=== PATIENT | female | born 2005 | race Two or more races ===

== ENCOUNTER 2025-11-18 21:27 | Emergency (ER) | payer MEDICAID ==
[~2025-11-18] VITALS: Ht 144.8 cm; Wt 83.3 kg
[2025-11-18 21:32] VITALS: O2SAT 99
[2025-11-18 22:25] LABS: BASOPHILS % 0.4 % (0.0-2.0); EOSINOPHILS % 0.8 % (0.0-5.0); HEMATOCRIT. 29.1 % (36.0-48.0); HEMOGLOBIN. 8.8 g/dL (12.0-16.0); LYMPHOCYTES % 26.7 % (20.0-50.0); MEAN PLATELET VOLUME 9.6 fl (7.4-10.4); MONOCYTES % 8.0 % (2.0-8.0); NEUTROPHILS % 64.1 % (40.0-76.0); PLATELET 232 x1000/uL (130-400); RED BLOOD CELL COUNT 3.79 mill/uL (4.2-5.4); RED CELL DISTRIBUTION WIDTH 15.5 % (11.6-14.6)
[2025-11-18 22:27] LABS: CREATININE 0.6 mg/dL (0.6-1.0); PROTEIN TOTAL 6.8 g/dL (6.0-8.3); UREA NITROGEN BLOOD 12 mg/dL (9-23)
[2025-11-18 22:29] LABS: ASPARTATE AMINOTRANSFERASE 22 IU/L (<34); BILIRUBIN DIRECT < 0.1 mg/dL (<=3.0); BILIRUBIN TOTAL 0.2 mg/dL (0.1-1.0)
[2025-11-18 22:30] LABS: HCG SCREEN NEGATIVE
[2025-11-18 23:53] LABS: CLARITY URINE CLOUDY (CLEAR); COLOR URINE YELLOW (YELLOW); GLUCOSE URINE NEGATIVE (NEGATIVE); KETONES URINE TRACE (NEGATIVE); LEUKOCYTE ESTERASE URINE NEGATIVE (NEGATIVE); NITRITE URINE POSITIVE (NEGATIVE); OCCULT BLOOD URINE NEGATIVE (NEGATIVE); PH URINE 6.0 (4.5-8.0); PROTEIN URINE TRACE (NEGATIVE); SPECIFIC GRAVITY URINE 1.037 (1.005-1.030); UROBILINOGEN URINE 1.0 E.U./dL (0.2-1.0)
[2025-11-19] MEDS: SODIUM CHLORIDE 0.9% 1,000 ML IV ONE (00:33)
[2025-11-19] MEDS: ONDANSETRON HCL 4MG/2ML INJ IV ONE (00:37)
[2025-11-19] MEDS: KETOROLAC 15MG/ML VIAL IV ONE (00:38)
[2025-11-19 00:57] LABS: SQUAMOUS EPITHELIAL CELL URINE 3+ /lpf (RARE/1+)
[2025-11-19 00:58] LABS: BACTERIA URINE 4+; RBC URINE 0-2 /hpf (0-2); WBC URINE 0-2 /hpf (0-2)
[2025-11-19] MEDS ORDERED: LIDO-53 TP (01:15)
[2025-11-19] MEDS ORDERED: ACET-2708 MT (01:15)
[2025-11-19] MEDS ORDERED: SULF1TAB48 MT (01:15)
[2025-11-19] MEDS: SULFAMETHOXAZOLE/TRIMETHOPRIM 800/160MG TABLET PO ONE (01:35)
[2025-11-19] MEDS: LIDOCAINE 5% PATCH TOP SCH (01:40)
[2025-11-19] MEDS: ACETAMINOPHEN 325MG TABLET PO ONE (01:41)
[2025-11-19 01:56] VITALS: BP 103/66; PULSE 60; RESP 20; TEMP 37.1; O2SAT 98
== END 2025-11-19 02:00 | disposition home or self-care (01) ==
LOC: ER 21:37
DX: R10.A2 Flank pain, left side (principal); D64.9 Anemia, unspecified; Z98.84 Bariatric surgery status
CPT/HCPCS: 99285; 74176; 96374; 71045; 96361; 96375; 80076; 80048; 81003; 81025; 84703; 83690; 85025; 36415; J1885; J2405; J7030